=== PATIENT | male | born 1995 | race Caucasian/White ===

== ENCOUNTER 2022-05-18 09:20 | Emergency (ER) | payer OTHER ==
[2022-05-18 09:30] VITALS: BP 147/82; PULSE 80; RESP 17; TEMP 97.7; BMI 26.5
[2022-05-18] MEDS ORDERED: KETOROLAC TROMETHAMINE 30 MG/1 ML VIAL IM ONE (10:08)
[2022-05-18] MEDS ORDERED: METHOCARBAMOL 500 MG TABLET PO ONE (10:08)
== END 2022-05-18 11:09 | disposition home or self-care (01) ==
LOC: JERFT 09:20
PROC: 3E0233Z Introduction of Anti-inflammatory into Muscle, Percutaneous Approach (ICD-10-PCS; principal; 2022-05-18)
DX: M54.2 Cervicalgia (principal); M25.511 Pain in right shoulder; V89.2XXA Person injured in unspecified motor-vehicle accident, traffic, initial encounter; Y92.9 Unspecified place or not applicable
CPT/HCPCS: 99283-25